=== PATIENT | female | born 1945 | race Hispanic/Latino ===

== ENCOUNTER → 2017-11-28 | Outpatient (CLI) | payer MEDICARE | END | disposition home or self-care (01) | LOC: SHCH 15:13 | PROVIDERS: ATTEND Internal Medicine Cardiovascular Disease | DX: I51.7 Cardiomegaly (principal); I10 Essential (primary) hypertension | CPT/HCPCS: 93306 ==

== ENCOUNTER → 2018-11-07 | Outpatient (CLI) | payer MEDICARE | END | disposition home or self-care (01) | LOC: SHCH 15:19 | PROVIDERS: ATTEND Internal Medicine Cardiovascular Disease | DX: I87.2 Venous insufficiency (chronic) (peripheral) (principal) | CPT/HCPCS: 93970 ==

== ENCOUNTER → 2018-11-13 | Outpatient (CLI) | payer MEDICARE ==
[~2018-11-13] VITALS: Ht 172.7 cm; Wt 127.0 kg
[~2018-11-13] MED LIST: REGADENOSON 0.4 MG/5 ML PF SYG IVP SCH
== END | disposition home or self-care (01) ==
LOC: SHCH 08:46
PROVIDERS: ATTEND Internal Medicine Cardiovascular Disease
DX: I25.9 Chronic ischemic heart disease, unspecified (principal); I20.9 Angina pectoris, unspecified
CPT/HCPCS: 78452; 93017; 96374; A9500 ×2; J2785

== ENCOUNTER 2018-12-24 06:38 | Day surgery (SDC) | payer MEDICARE ==
[2018-12-21 14:06] VITALS: BP 172/54
[2018-12-21 14:06] LABS: BASOPHILS % (AUTO) 0.6 % (0.0-5.0); EOSINOPHILS % (AUTO) 1.6 % (0.0-8.0); HEMATOCRIT 37.4 % (36-48); LYMPHOCYTES % (AUTO) 31.8 % (21.0-51.0); MEAN CORPUSCULAR HEMOGLOBIN 30.7 pg (27.0-33.0); MEAN CORPUSCULAR HGB CONC 33.6 g/dL (32.0-36.0); MEAN CORPUSCULAR VOLUME 91.4 fL (79-99); NUCLEATED RED BLOOD CELLS 0.1 % (0.0-0.19); PLATELET COUNT (AUTO) 308 K/uL (130-400); RED BLOOD CELL COUNT(AUTO) 4.09 MIL/uL (4.00-5.50); RED CELL DISTRIBUTION WIDTH 14.2 % (11.0-15.5); WHITE BLOOD COUNT (AUTO) 9.3 K/uL (4.8-10.8)
[2018-12-21 14:10] LABS: APPEARANCE,URINE Clear (CLEAR); BILIRUBIN,URINE Negative (NEGATIVE); COLOR,URINE Yellow (YELLOW); GLUCOSE, URINE (UA) Negative (NEGATIVE); KETONES,URINE Negative (NEGATIVE); LEUKOCYTE ESTERASE ,URINE Trace (NEGATIVE); NITRATE,URINE Negative (NEGATIVE); OCCULT BLOOD,URINE Negative (NEGATIVE); PH,URINE 6.5 (5.0-8.0); PROTEIN,URINE 300 mg/dL (NEGATIVE)
[2018-12-21 14:17] LABS: BACTERIA,URINE Rare /HPF (None Seen); RBC,URINE 0-1 /HPF (0-1); SQUAMOUS EPITHELIAL CELL,UR Rare /HPF (0-2)
[2018-12-21 14:20] LABS: CREATININE 0.7 mg/dL (0.5-1.5)
[2018-12-21 14:28] LABS: INR 0.94 (0.85-1.15); PARTIAL THROMBOPLASTIN TIME 30.9 SEC (26.3-35.5); PROTHROMBIN TIME 9.9 SEC (9.6-11.6)
--- NOTE | 2018-12-21 14:59 | NUR ---
NOTIFIED WENCESLAO AMBRIZ OF DR. MCDONNELL OF ABNORMAL UA, PER WENCESLAO AMBRIZ OK TO PROCEED NO NEW ORDERS OBTAINED.
--- NOTE | 2018-12-21 15:26 | NUR ---
CHEST X RAY CHEST X RAY RESULT REPORTED TO [facility]. NO FURTHER ORDERS GIVEN. MAY PROCEED WITH PLANNED PROCEDURE.
[~2018-12-24] VITALS: Ht 167.6 cm; Wt 128.4 kg
[2018-12-24] VITALS (11 sets, daily range): BP systolic 128–191; BP diastolic 44–65
[~2018-12-24 06:38] MED LIST changes: +AMLO5TAB9 PO; +ASPI-555 PO; +INSLAN SQ; +LOSA50TA64 PO; +MELO-106 PO; +METF-444 PO; +METO-391 PO; +PIOG30TA70 PO; -REGADENOSON 0.4 MG/5 ML PF SYG IVP SCH; +ROSU40TA20 PO; +SODIUM CHLORIDE 0.9% 1000ML 1,000 ML IV ONE
[2018-12-24] MEDS ORDERED: LIDOCAINE HCL 2% 20ML ONE (09:08)
[2018-12-24] MEDS ORDERED: IOHEXOL-350 50ML VIAL IV ONE (09:08)
[2018-12-24] MEDS ORDERED: NITROGLYCERIN 5 MG/ML 10 ML VIAL IV ONE (09:08)
[2018-12-24] MEDS ORDERED: IOHEXOL 350 MG/ML 100ML INFUS..BTL IV ONE (09:08)
--- NOTE | 2018-12-24 09:45 | NUR ---
TO PRINTING PLATE CLERK PT TAKEN TO PRINTING PLATE CLERK VIA BED BY KRISTIAN MCGEE. VOIDED PRIOR. PT STABLE.
[2018-12-24] MEDS ORDERED: HEART PILL SL (09:47)
[2018-12-24] MEDS ORDERED: FENTANYL CITRATE PF 50 MCG/1 ML 2ML VIAL ONE (10:00)
[2018-12-24] MEDS ORDERED: MIDAZOLAM HCL 1 MG/ML 2ML VIAL ONE (10:00)
[2018-12-24] MEDS ORDERED: SODIUM CHLORIDE 0.9% 1000ML 1,000 ML IV SCH (10:29)
[2018-12-24] MEDS ORDERED: GLUCAGON 1MG KIT 1 MG ML IM PRN (10:30)
[2018-12-24] MEDS ORDERED: DEXTROSE 50%-WATER 50 ML DISP.SYRIN IV PRN (10:30)
[2018-12-24] MEDS ORDERED: NITROGLYCERIN 0.4 MG SL TAB SL PRN (10:30)
[2018-12-24] MEDS ORDERED: HYDRALAZINE HCL 20 MG/ML VIAL IV PRN (10:30)
[2018-12-24] MEDS ORDERED: INSULIN HUMULIN R 100 UNIT/ML 3ML SQ SCH (11:30)
--- NOTE | 2018-12-24 12:20 | NUR ---
DIET PT TOLERATED DIET WELL, PCP ASSISTED PT.
--- NOTE | 2018-12-24 14:45 | NUR ---
ACTIVITY PT ASSISTED TO BATHROOM, AMBULATED WITHOUT ANY PROBLEMS, VOIDED X1 CLEAR YELLOW URINE.
--- NOTE | 2018-12-24 15:10 | NUR ---
DISCHARGE PT DISCHARGED VIA WHEELCHAIR WITH BROTHER. PT STABLE. NO COMPLAINTS MADE. CATH SITE REMAINS SOFT, DRESSING DRY AND INTACT NO OOZING NO HEMATOMA NOTED. DISCHARGE INSTRUCTIONS GIVEN TO BROTHER AND PT. VERBALIZED UNDERSTANDING. ALSO DEMONSTRATED TO PT EARLIER ON HOW TO MONITOR CATH SITE FOR BLEEDING, HEMATOMA, APPLY DIRECT PRESSURE AND CALL 911. VERBALIZED UNDERSTANDING.
== END 2018-12-24 15:10 | disposition home or self-care (01) ==
LOC: DAH 06:38
PROVIDERS: ATTEND Internal Medicine Cardiovascular Disease
DX: I25.118 Atherosclerotic heart disease of native coronary artery with other forms of angina pectoris (principal); E11.9 Type 2 diabetes mellitus without complications; E66.01 Morbid (severe) obesity due to excess calories; I11.0 Hypertensive heart disease with heart failure; I50.32 Chronic diastolic (congestive) heart failure; E78.5 Hyperlipidemia, unspecified; M19.90 Unspecified osteoarthritis, unspecified site; E03.9 Hypothyroidism, unspecified; F15.90 Other stimulant use, unspecified, uncomplicated; Z79.4 Long term (current) use of insulin; Z79.899 Other long term (current) drug therapy; Z68.42 Body mass index [BMI] 45.0-49.9, adult; Z79.01 Long term (current) use of anticoagulants; Z79.84 Long term (current) use of oral hypoglycemic drugs; Z82.49 Family history of ischemic heart disease and other diseases of the circulatory system; Z83.3 Family history of diabetes mellitus
CPT/HCPCS: 36415; 71045; 80048; 81001; 82948 ×2; 85025; 85610; 85730; 93005; 93458; A4606; C1760; C1894 ×2; J1644; J1815; J2250; J3010; J3490 ×2; J7030; Q9965; Q9967 ×2; 99156; 99157

== ENCOUNTER 2020-02-01 21:00 | Inpatient (IN) | payer MEDICARE ==
[~2020-02-01] VITALS: Ht 172.7 cm; Wt 120.5 kg
[~2020-02-01 21:00] MED LIST changes: -ASPI-555 PO; +ASPI-556 PO; +HEART PILL SL; -ROSU40TA20 PO; +ROSU40TA21 PO; -SODIUM CHLORIDE 0.9% 1000ML 1,000 ML IV ONE
[2020-02-01] MEDS ORDERED: ACETAMINOPHEN EXTRA STRENGTH 500 MG TABLET ONE (21:17)
[2020-02-01 21:43] LABS: BASOPHILS % (AUTO) 0.1 % (0.0-5.0); EOSINOPHILS % (AUTO) 0.2 % (0.0-8.0); HEMATOCRIT 39.9 % (36-48); LYMPHOCYTES % (AUTO) 31.2 % (21.0-51.0); MEAN CORPUSCULAR HEMOGLOBIN 29.4 pg (27.0-33.0); MEAN CORPUSCULAR HGB CONC 32.8 g/dL (32.0-36.0); MEAN CORPUSCULAR VOLUME 89.5 fL (79-99); MONOCYTES % (AUTO) 6.1 % (3.0-13.0); NEUTROPHILS % (AUTO) 62.2 % (40.0-77.0); PLATELET COUNT (AUTO) 242 K/uL (130-400); RED BLOOD CELL COUNT(AUTO) 4.46 MIL/uL (4.00-5.50); RED CELL DISTRIBUTION WIDTH 13.5 % (11.0-15.5); WHITE BLOOD COUNT (AUTO) 8.3 K/uL (4.8-10.8)
[2020-02-01 22:00] LABS: CREATININE 1.4 mg/dL (0.5-1.5); POTASSIUM 3.3 mmol/L (3.5-5.1)
[2020-02-01 22:05] LABS: ALBUMIN 3.1 g/dL (3.5-5.0); BILIRUBIN,TOTAL 1.4 mg/dL (0.2-1.0); TOTAL PROTEIN, SERUM 7.9 g/dL (6.0-8.3)
[2020-02-01 22:16] LABS: INR 0.87 (0.85-1.15); PARTIAL THROMBOPLASTIN TIME 32.1 SEC (26.3-35.5); PROTHROMBIN TIME 9.4 SEC (9.6-11.6)
[2020-02-01] MEDS ORDERED: AZITHROMYCIN 500MG+NS 250ML 250 ML IV ONE (22:20)
[2020-02-01] MEDS ORDERED: DEXAMETHASONE SOD PHOSPHATE 10MG/ML 1ML VIAL ONE (22:20)
[2020-02-01] MEDS ORDERED: CEFTRIAXONE SODIUM 1 GM ONE (22:21)
[2020-02-01] MEDS ORDERED: INSULIN HUMULIN R 100 UNIT/ML 3ML ONE (22:22)
[2020-02-01] MEDS ORDERED: POTASSIUM BICARB/CIT AC 25 MEQ TABLET.EFF ONE (22:31)
[2020-02-01] MEDS: SODIUM CHLORIDE 0.9% 1000ML 1,000 ML IV SCH (22:40)
[2020-02-01] MEDS ORDERED: DiphenhydrAMINE HCL 50 MG/ML VIAL IV PRN (22:45)
[2020-02-01] MEDS ORDERED: BENZONATATE 100 MG CAPSULE PO PRN (22:45)
[2020-02-01] MEDS ORDERED: LIDOCAINE HCL 2% VISCOUS 30 ML, MAG HYDROX/AL HYDROX/SIMETH 30 ML, BELLADONNA-PHENOBARB... PO PRN ×3 (22:45)
[2020-02-01] MEDS ORDERED: DIPHENHYDRAMINE HCL 25 MG CAPSULE PO PRN (22:45)
[2020-02-01] MEDS: AZITHROMYCIN 500MG+NS 250ML 250 ML IV SCH (22:45)
[2020-02-01] MEDS ORDERED: ONDANSETRON HCL 4 MG/2 ML VIAL IV PRN (22:45)
[2020-02-01] MEDS ORDERED: MAG HYDROX/AL HYDROX/SIMETH ES 30 ML SUSP UDCUP PO PRN (22:45)
[2020-02-01] MEDS ORDERED: ZOLPIDEM TARTRATE 5 MG TAB PO PRN (22:45)
[2020-02-01] MEDS ORDERED: ERGOCALCIFEROL (VITAMIN D2) 50,000 UNIT CAPSULE PO ONE (22:45)
[2020-02-01] MEDS: CEFTRIAXONE SODIUM 1 GM IVP SCH (22:45)
[2020-02-01] MEDS ORDERED: LACTULOSE 20 GM/30 ML UDCUP PO PRN (22:45)
[2020-02-01] MEDS ORDERED: GUAIFENESIN-DM 200/20 MG 10 ML PO PRN (22:45)
[2020-02-01] MEDS ORDERED: ACETAMINOPHEN 325 MG TAB PO PRN ×2 (22:45)
[2020-02-01] MEDS ORDERED: DEXAMETHASONE 10MG/ML 1ML VIAL 6 MG in SODIUM CHLORIDE 0.9% 50 ML IV SCH (22:45)
[2020-02-01 22:56] LABS: PHOSPHORUS 2.5 mg/dL (2.5-4.9)
[2020-02-01] MEDS ORDERED: IOHEXOL 350 MG/ML 100ML INFUS..BTL IV ONE (23:10)
[2020-02-01 23:47] LABS: HEMOGLOBIN A1C 10.2 % (4.0-6.0)
[2020-02-02 01:07] VITALS: BP 139/53
[2020-02-02 04:30] LABS: BASOPHILS % (AUTO) 0.1 % (0.0-5.0); EOSINOPHILS % (AUTO) 1.3 % (0.0-8.0); HEMATOCRIT 41.8 % (36-48); MEAN CORPUSCULAR HGB CONC 32.3 g/dL (32.0-36.0); MEAN CORPUSCULAR VOLUME 89.7 fL (79-99); NEUTROPHILS % (AUTO) 71.2 % (40.0-77.0); PLATELET COUNT (AUTO) 257 K/uL (130-400); RED BLOOD CELL COUNT(AUTO) 4.66 MIL/uL (4.00-5.50); RED CELL DISTRIBUTION WIDTH 13.5 % (11.0-15.5); WHITE BLOOD COUNT (AUTO) 7.7 K/uL (4.8-10.8)
[2020-02-02 04:42] LABS: ALANINE AMINOTRANSFERASE 14 U/L (12-78); ALBUMIN 2.9 g/dL (3.5-5.0); ASPARTATE AMINOTRANSFERASE 29 U/L (10-37); BILIRUBIN,TOTAL 1.1 mg/dL (0.2-1.0); CARBON DIOXIDE 25 mmol/L (21-32); CHLORIDE 98 mmol/L (101-111); CREATININE 1.2 mg/dL (0.5-1.5); GLOMERULAR FILTR. RATE CALC 47 mL/min (>60); GLUCOSE,RANDOM 326 mg/dL (70-105); LACTATE DEHYDROGENASE 323 U/L (81-234); POTASSIUM 3.9 mmol/L (3.5-5.1); SODIUM SERUM 134 mmol/L (136-145); TOTAL PROTEIN, SERUM 7.8 g/dL (6.0-8.3); UREA NITROGEN, BLOOD 13 mg/dL (7-18)
[2020-02-02] MEDS ORDERED: PHARMACY COMMUNICATION***REMDESIVIR ORDER MISC SCH (04:45)
[2020-02-02] MEDS: SODIUM CHLORIDE 0.9% 1000ML 1,000 ML IV SCH ×4 (04:57→22:32)
[2020-02-02] MEDS: INSULIN LISPRO 100 UNIT/ML 3ML SQ SCH ×4 (05:41→19:59)
[2020-02-02 06:11] VITALS: BP 135/58
--- NOTE | 2020-02-02 06:31 | NUR ---
assessment Pt. is alert and oriented times 4. no complaints of any pain. pt. is on 2 liters nasal canula sating 100%. pt. is up with cane to the bathroom. am blood sugar is 322 i gave her coverage. vitals stable no skin issues. pt. told the ed nurse what meds that she can remember from home. her is in room 409. vitals are stable will continue to monitor
[2020-02-02] MEDS ORDERED: INSULIN LISPRO 100 UNIT/ML 3ML SQ SCH (07:30)
[2020-02-02 08:00] VITALS: BP 118/62
[2020-02-02] MEDS: FAMOTIDINE/PF 20 MG/2 ML VIAL IV SCH ×2 (08:48→19:39)
[2020-02-02] MEDS: ZINC SULFATE 220 CAPSULE PO SCH (08:48)
[2020-02-02] MEDS: ASCORBIC ACID 500 MG TAB PO SCH (08:49)
[2020-02-02] MEDS: CEFTRIAXONE SODIUM 1 GM IVP SCH ×2 (08:49→22:18)
[2020-02-02] MEDS: HEPARIN SODIUM 5000UNIT/ML 1ML VIAL SQ SCH ×3 (08:57→19:39)
[2020-02-02] MEDS: ACETYLCYSTEINE 600 MG CAPSULE PO SCH ×2 (08:58→20:40)
[2020-02-02 11:04] VITALS: BP 135/55
[2020-02-02] MEDS ORDERED: PHARMACY COMMUNICATION**REMDESIVIR ORDER MISC SCH (14:15)
--- NOTE | 2020-02-02 14:51 | NUR ---
cm note met with patient and states resides at home with partner/bf ravi garciabenedicto baker. indep with adls. ,uses cane and walker for ambulation pt drives. no home services. . states dc plan is back to home at time of dc. Addendum: 02/02/20 at 1456 by CADEN GALLARDO CM Amended: Links added.
[2020-02-02 15:56] VITALS: BP 141/65
[2020-02-02] MEDS ORDERED: COMPOUND IV REFRIGERATED 1 EACH IVSOLN MISC PRN (18:15)
[2020-02-02] MEDS ORDERED: REMDESIVIR (EUA) 520 200 MG in SODIUM CHLORIDE 0.9% 250 ML IV SCH (18:15)
[2020-02-02 20:10] VITALS: BP 142/62
[2020-02-02] MEDS: AZITHROMYCIN 500MG+NS 250ML 250 ML IV SCH (22:18)
[2020-02-02] MEDS: DEXAMETHASONE SOD PHOSPHATE 4 MG/ML 1ML VIAL IVP SCH (22:18)
[2020-02-02 23:52] LABS: APPEARANCE,URINE Clear (CLEAR); BILIRUBIN,URINE Negative (NEGATIVE); COLOR,URINE Yellow (YELLOW); GLUCOSE, URINE (UA) 500 mg/dL (NEGATIVE); KETONES,URINE Negative (NEGATIVE); LEUKOCYTE ESTERASE ,URINE Negative (NEGATIVE); NITRATE,URINE Negative (NEGATIVE); OCCULT BLOOD,URINE Small (NEGATIVE); PROTEIN,URINE POS 2+ mg/dL (NEGATIVE); UROBILINOGEN,URINE 0.2 mg/dL (0.2-1.0)
[2020-02-03 00:15] LABS: BACTERIA,URINE Rare /HPF (None Seen); MUCUS,URINE Few LPF (None Seen); RBC,URINE None Seen /HPF (0-1); SQUAMOUS EPITHELIAL CELL,UR Moderate /HPF (0-2); WBC,URINE 0-1 /HPF (0-1)
[2020-02-03 00:23] VITALS: BP 147/59
[2020-02-03] MEDS: PHARMACY COMMUNICATION MISC SCH (05:17)
[2020-02-03] MEDS: INSULIN LISPRO 100 UNIT/ML 3ML SQ SCH ×4 (05:18→20:23)
[2020-02-03 05:26] VITALS: BP 144/50
--- NOTE | 2020-02-03 05:55 | NUR ---
ASSESSMENT PATIENT IS ALERT AND ORIENTED TIMES 4. NO COMPLAINTS OF ANY PAIN. PATIENT IS SATING UPPER 90'S ON 2 LITERS NASAL CANULA. PT. RECEIVED 2 UNITS OF PLASMA LAST NIGHT. AM BLOOD SUGAR IS 336 I GAVE HER COVERAGE. VITALS ARE STABLE WILL CONTINUE TO MONITOR.
[2020-02-03 06:32] LABS: BASOPHILS % (AUTO) 0.1 % (0.0-5.0); HEMATOCRIT 38.6 % (36-48); MEAN CORPUSCULAR HEMOGLOBIN 29.4 pg (27.0-33.0); MEAN CORPUSCULAR HGB CONC 32.6 g/dL (32.0-36.0); MEAN CORPUSCULAR VOLUME 90.2 fL (79-99); MONOCYTES % (AUTO) 1.7 % (3.0-13.0); NEUTROPHILS % (AUTO) 75.5 % (40.0-77.0); PLATELET COUNT (AUTO) 307 K/uL (130-400); RED BLOOD CELL COUNT(AUTO) 4.28 MIL/uL (4.00-5.50); RED CELL DISTRIBUTION WIDTH 13.5 % (11.0-15.5); WHITE BLOOD COUNT (AUTO) 7.2 K/uL (4.8-10.8)
[2020-02-03 07:35] LABS: CARBON DIOXIDE 28 mmol/L (21-32)
[2020-02-03 07:49] LABS: CHLORIDE 104 mmol/L (101-111); POTASSIUM 3.4 mmol/L (3.5-5.1); SODIUM SERUM 141 mmol/L (136-145)
[2020-02-03 08:00] VITALS: BP 124/58
[2020-02-03] MEDS: SODIUM CHLORIDE 0.9% 1000ML 1,000 ML IV SCH ×3 (08:00→20:44)
--- NOTE | 2020-02-03 08:00 | NUR ---
AM SHIFT ASSESSMENT: AAO X 4, SKIN WARM AND DRY TO TOUCH,HEART MONITOR ON, SALINE LOCK RT. FOREARM INTACT. NO C/O VOICED AT THIS TIME.
[2020-02-03 08:14] LABS: ALANINE AMINOTRANSFERASE 15 U/L (12-78); ALBUMIN 2.9 g/dL (3.5-5.0); ASPARTATE AMINOTRANSFERASE 24 U/L (10-37); BILIRUBIN,TOTAL 0.7 mg/dL (0.2-1.0); CREATININE 0.9 mg/dL (0.5-1.5); GLOMERULAR FILTR. RATE CALC 65 mL/min (>60); GLUCOSE,RANDOM 389 mg/dL (70-105); LACTATE DEHYDROGENASE 307 U/L (81-234); TOTAL PROTEIN, SERUM 7.5 g/dL (6.0-8.3); UREA NITROGEN, BLOOD 11 mg/dL (7-18)
[2020-02-03] MEDS: ACETYLCYSTEINE 600 MG CAPSULE PO SCH ×2 (09:00→20:23)
[2020-02-03] MEDS: ZINC SULFATE 220 CAPSULE PO SCH (09:47)
[2020-02-03] MEDS: FAMOTIDINE/PF 20 MG/2 ML VIAL IV SCH ×2 (09:47→20:22)
[2020-02-03] MEDS: ASCORBIC ACID 500 MG TAB PO SCH (09:47)
[2020-02-03] MEDS: CEFTRIAXONE SODIUM 1 GM IVP SCH ×2 (09:47→20:44)
[2020-02-03] MEDS: HEPARIN SODIUM 5000UNIT/ML 1ML VIAL SQ SCH ×3 (09:56→20:22)
[2020-02-03 12:00] VITALS: BP 133/55
--- NOTE | 2020-02-03 14:30 | NUR ---
HAS BEEN UP TO BR TWICE TODAY AND REPORTS 2 BOWEL MOVEMENTS.
[2020-02-03 16:00] VITALS: BP 135/59
[2020-02-03] MEDS: REMDESIVIR (EUA) 520 100 MG in SODIUM CHLORIDE 0.9% 250 ML IV SCH (17:43)
[2020-02-03 19:45] VITALS: BP 152/63
[2020-02-03] MEDS: DEXAMETHASONE SOD PHOSPHATE 4 MG/ML 1ML VIAL IVP SCH (20:44)
[2020-02-04 00:05] VITALS: BP 158/57
[2020-02-04 05:15] VITALS: BP 156/60
--- NOTE | 2020-02-04 05:26 | NUR ---
assessment pt. is alert and oriented times 4 no complaints of any pain. patient is sating upper 90's on 2 liters nasal canula. last night blood sugar was 248 coverage given. vitals are stable will continue to monitor.
[2020-02-04] MEDS: PHARMACY COMMUNICATION MISC SCH (05:37)
[2020-02-04] MEDS: INSULIN LISPRO 100 UNIT/ML 3ML SQ SCH ×4 (05:38→21:16)
[2020-02-04 05:54] LABS: BASOPHILS % (AUTO) 0.3 % (0.0-5.0); HEMATOCRIT 39.8 % (36-48); LYMPHOCYTES % (AUTO) 23.2 % (21.0-51.0); MEAN CORPUSCULAR HEMOGLOBIN 29.8 pg (27.0-33.0); MEAN CORPUSCULAR HGB CONC 32.9 g/dL (32.0-36.0); MEAN CORPUSCULAR VOLUME 90.5 fL (79-99); MONOCYTES % (AUTO) 2.6 % (3.0-13.0); PLATELET COUNT (AUTO) 378 K/uL (130-400); RED CELL DISTRIBUTION WIDTH 13.4 % (11.0-15.5); WHITE BLOOD COUNT (AUTO) 7.6 K/uL (4.8-10.8)
[2020-02-04 06:05] LABS: ALANINE AMINOTRANSFERASE 8 U/L (12-78); ALBUMIN 2.9 g/dL (3.5-5.0); ASPARTATE AMINOTRANSFERASE 21 U/L (10-37); BILIRUBIN,TOTAL 0.7 mg/dL (0.2-1.0); CARBON DIOXIDE 26 mmol/L (21-32); CHLORIDE 98 mmol/L (101-111); CREATININE 0.8 mg/dL (0.5-1.5); GLOMERULAR FILTR. RATE CALC 75 mL/min (>60); GLUCOSE,RANDOM 367 mg/dL (70-105); LACTATE DEHYDROGENASE 298 U/L (81-234); POTASSIUM 3.6 mmol/L (3.5-5.1); SODIUM SERUM 136 mmol/L (136-145); TOTAL PROTEIN, SERUM 7.7 g/dL (6.0-8.3); UREA NITROGEN, BLOOD 16 mg/dL (7-18)
--- NOTE | 2020-02-04 08:00 | NUR ---
ASSESSMENT DONE. NO C/O, BREATHING EASY ON 2 LITERS OF 02 PER NC.
[2020-02-04] MEDS: FAMOTIDINE/PF 20 MG/2 ML VIAL IV SCH ×2 (08:49→20:19)
[2020-02-04] MEDS: ASCORBIC ACID 500 MG TAB PO SCH (08:50)
[2020-02-04] MEDS: ACETYLCYSTEINE 600 MG CAPSULE PO SCH ×2 (08:50→20:20)
[2020-02-04] MEDS: ZINC SULFATE 220 CAPSULE PO SCH (08:50)
[2020-02-04] MEDS: HEPARIN SODIUM 5000UNIT/ML 1ML VIAL SQ SCH ×3 (08:57→20:20)
[2020-02-04] MEDS: SODIUM CHLORIDE 0.9% 1000ML 1,000 ML IV SCH (10:40)
[2020-02-04] MEDS: CEFTRIAXONE SODIUM 1 GM IVP SCH ×2 (10:41→21:26)
[2020-02-04 12:30] VITALS: BP 144/61
[2020-02-04 16:00] VITALS: BP 124/36
[2020-02-04] MEDS: REMDESIVIR (EUA) 520 100 MG in SODIUM CHLORIDE 0.9% 250 ML IV SCH (16:55)
[2020-02-04 20:42] VITALS: BP 154/78
[2020-02-04] MEDS: DEXAMETHASONE SOD PHOSPHATE 4 MG/ML 1ML VIAL IVP SCH (21:26)
[2020-02-04 23:57] VITALS: BP 151/55
[2020-02-05 04:04] VITALS: BP 163/60
[2020-02-05] MEDS: PHARMACY COMMUNICATION MISC SCH (05:16)
[2020-02-05] MEDS: INSULIN LISPRO 100 UNIT/ML 3ML SQ SCH ×4 (05:33→20:44)
[2020-02-05 08:00] VITALS: BP 160/68
[2020-02-05] MEDS: ASCORBIC ACID 500 MG TAB PO SCH (10:26)
[2020-02-05] MEDS: ACETYLCYSTEINE 600 MG CAPSULE PO SCH ×2 (10:26→20:41)
[2020-02-05] MEDS: ZINC SULFATE 220 CAPSULE PO SCH (10:26)
[2020-02-05] MEDS: FAMOTIDINE/PF 20 MG/2 ML VIAL IV SCH ×2 (10:26→20:41)
[2020-02-05] MEDS: HEPARIN SODIUM 5000UNIT/ML 1ML VIAL SQ SCH ×3 (10:39→20:42)
[2020-02-05 11:30] VITALS: BP 149/73
[2020-02-05] MEDS: CEFTRIAXONE SODIUM 1 GM IVP SCH ×2 (12:28→23:22)
[2020-02-05 16:00] VITALS: BP 161/67
[2020-02-05] MEDS: REMDESIVIR (EUA) 520 100 MG in SODIUM CHLORIDE 0.9% 250 ML IV SCH (17:07)
[2020-02-05 20:27] VITALS: BP 157/58
[2020-02-05] MEDS: DEXAMETHASONE SOD PHOSPHATE 4 MG/ML 1ML VIAL IVP SCH (23:22)
[2020-02-05 23:56] VITALS: BP 144/63
[2020-02-06 03:47] LABS: BASOPHILS % (AUTO) 0.2 % (0.0-5.0); EOSINOPHILS % (AUTO) 0.1 % (0.0-8.0); HEMATOCRIT 40.6 % (36-48); LYMPHOCYTES % (AUTO) 24.9 % (21.0-51.0); MEAN CORPUSCULAR HEMOGLOBIN 29.4 pg (27.0-33.0); MEAN CORPUSCULAR HGB CONC 33.3 g/dL (32.0-36.0); MEAN CORPUSCULAR VOLUME 88.5 fL (79-99); MONOCYTES % (AUTO) 5.5 % (3.0-13.0); NEUTROPHILS % (AUTO) 67.7 % (40.0-77.0); PLATELET COUNT (AUTO) 410 K/uL (130-400); RED BLOOD CELL COUNT(AUTO) 4.59 MIL/uL (4.00-5.50); RED CELL DISTRIBUTION WIDTH 13.2 % (11.0-15.5); WHITE BLOOD COUNT (AUTO) 8.5 K/uL (4.8-10.8)
[2020-02-06 03:59] VITALS: BP 157/68
[2020-02-06 04:13] LABS: ALBUMIN 2.8 g/dL (3.5-5.0); BILIRUBIN,TOTAL 0.7 mg/dL (0.2-1.0); POTASSIUM 3.7 mmol/L (3.5-5.1); TOTAL PROTEIN, SERUM 7.2 g/dL (6.0-8.3)
[2020-02-06] MEDS: PHARMACY COMMUNICATION MISC SCH ×2 (05:38→22:59)
[2020-02-06] MEDS ORDERED: POTASSIUM CHLORIDE 10MEQ/100ML 100 ML IV PRN (06:00)
[2020-02-06] MEDS ORDERED: LIDOCAINE HCL-MPF 1% 2ML VIAL IV PRN (06:00)
[2020-02-06] MEDS ORDERED: POTASSIUM CHLORIDE 10% ELIXIR 20 MEQ/15 ML UDCUP PO PRN (06:00)
[2020-02-06] MEDS ORDERED: POTASSIUM CHLORIDE 20 MEQ ERTAB PO PRN (06:00)
[2020-02-06] MEDS: INSULIN HUMULIN R 100 UNIT/ML 3ML SQ SCH ×7 (06:20→21:35)
[2020-02-06 08:00] VITALS: BP 134/57
[2020-02-06] MEDS: FAMOTIDINE/PF 20 MG/2 ML VIAL IV SCH ×2 (10:49→20:10)
[2020-02-06] MEDS: ACETYLCYSTEINE 600 MG CAPSULE PO SCH ×2 (10:51→20:10)
[2020-02-06] MEDS: ASCORBIC ACID 500 MG TAB PO SCH (10:51)
[2020-02-06] MEDS: ZINC SULFATE 220 CAPSULE PO SCH (10:52)
[2020-02-06] MEDS: HEPARIN SODIUM 5000UNIT/ML 1ML VIAL SQ SCH ×3 (10:53→21:33)
[2020-02-06] MEDS: CEFTRIAXONE SODIUM 1 GM IVP SCH ×2 (11:11→20:09)
[2020-02-06 11:30] VITALS: BP 128/58
[2020-02-06 15:30] VITALS: BP 145/69
[2020-02-06] MEDS: REMDESIVIR (EUA) 520 100 MG in SODIUM CHLORIDE 0.9% 250 ML IV SCH (18:23)
[2020-02-06 20:00] VITALS: BP 153/59
--- NOTE | 2020-02-06 20:00 | NUR ---
assessment note patient awake, alert, ox3, no sob, no /co pain at this time, on r/a at this time, oxygen saturation 94 %, tolerating well, extensive discussion regarding plan of care and expected outcome, patient verbalizes understanding via teach back
[2020-02-06] MEDS: DEXAMETHASONE SOD PHOSPHATE 4 MG/ML 1ML VIAL IVP SCH (20:10)
[2020-02-06] MEDS ORDERED: INSULIN GLARGINE 100 UNITS/ML 10 ML VIAL SQ SCH (21:00)
[2020-02-07] VITALS: BP 152/52
[2020-02-07 04:00] VITALS: BP 163/59
[2020-02-07 04:34] LABS: BASOPHILS % (AUTO) 0.2 % (0.0-5.0); HEMATOCRIT 41.1 % (36-48); LYMPHOCYTES % (AUTO) 22.4 % (21.0-51.0); MEAN CORPUSCULAR HEMOGLOBIN 29.4 pg (27.0-33.0); MEAN CORPUSCULAR HGB CONC 33.6 g/dL (32.0-36.0); MEAN CORPUSCULAR VOLUME 87.6 fL (79-99); MONOCYTES % (AUTO) 3.5 % (3.0-13.0); NEUTROPHILS % (AUTO) 70.5 % (40.0-77.0); PLATELET COUNT (AUTO) 449 K/uL (130-400); RED BLOOD CELL COUNT(AUTO) 4.69 MIL/uL (4.00-5.50); RED CELL DISTRIBUTION WIDTH 13.2 % (11.0-15.5)
[2020-02-07 05:02] LABS: ALBUMIN 2.7 g/dL (3.5-5.0); BILIRUBIN,TOTAL 0.7 mg/dL (0.2-1.0); CREATININE 0.9 mg/dL (0.5-1.5); POTASSIUM 3.7 mmol/L (3.5-5.1); TOTAL PROTEIN, SERUM 7.2 g/dL (6.0-8.3)
[2020-02-07] MEDS: INSULIN HUMULIN R 100 UNIT/ML 3ML SQ SCH ×4 (05:58→12:23)
[2020-02-07 08:09] VITALS: BP 147/71
[2020-02-07] MEDS ORDERED: DEXA6TAB PO (08:16)
[2020-02-07] MEDS ORDERED: ASPI-1005 PO (08:16)
[2020-02-07] MEDS: ASCORBIC ACID 500 MG TAB PO SCH (09:00)
[2020-02-07] MEDS: ZINC SULFATE 220 CAPSULE PO SCH (09:00)
[2020-02-07] MEDS: ACETYLCYSTEINE 600 MG CAPSULE PO SCH (09:00)
[2020-02-07] MEDS: HEPARIN SODIUM 5000UNIT/ML 1ML VIAL SQ SCH ×2 (09:00→14:00)
[2020-02-07] MEDS: FAMOTIDINE/PF 20 MG/2 ML VIAL IV SCH (09:00)
--- NOTE | 2020-02-07 09:51 | NUR ---
CM NOTE/[facility] DELIVERED O2 AT HOME CALL MADE TO BROTHER AND MOTHER, BOTH HAVE SAME PHONE # [phone] TO CONFIRM OXYGEN DELIVERY AT HOME, NO ANSWER. CALL PLACED TO PATIENT [phone]. PER PATIENT, CONFIRMED OXYGEN CONCENTRATOR AND PORTABLE TANK DELIVERED AT HOME ON 02/05. INFORMED PATIENT TO HAVE WHO EVER IS PICKING HER UP TO BRING PORTABLE O2 FOR CAR RIDE HOME WITH OXYGEN, PATIENT VERBALIZED UNDERSTANDING.
[2020-02-07] MEDS: CEFTRIAXONE SODIUM 1 GM IVP SCH (11:23)
[2020-02-07 12:25] VITALS: BP 129/59
[2020-02-07 16:39] VITALS: BP 157/59
[2020-02-07 16:42] VITALS: BP 157/59
== END 2020-02-07 18:20 | disposition home or self-care (01) | DRG 177 ==
LOC: EDH 21:00 → EDHIP 22:40 → 4BH 02-02 00:15
PROVIDERS: ADMIT Internal Medicine; ATTEND Internal Medicine
PROC: XW13325 Transfusion of Convalescent Plasma (Nonautologous) into Peripheral Vein, Percutaneous Approach, New Technology Group 5 (ICD-10-PCS; principal; 2020-02-01)
PROC: XW033E5 Introduction of Remdesivir Anti-infective into Peripheral Vein, Percutaneous Approach, New Technology Group 5 (ICD-10-PCS; 2020-02-01)
DX: U07.1 COVID-19 (principal); J12.89 Other viral pneumonia; J96.01 Acute respiratory failure with hypoxia; E87.1 Hypo-osmolality and hyponatremia; N17.9 Acute kidney failure, unspecified; Z68.42 Body mass index [BMI] 45.0-49.9, adult; E87.6 Hypokalemia; E11.65 Type 2 diabetes mellitus with hyperglycemia; E66.01 Morbid (severe) obesity due to excess calories; E78.5 Hyperlipidemia, unspecified; I11.9 Hypertensive heart disease without heart failure; I25.10 Atherosclerotic heart disease of native coronary artery without angina pectoris; Z86.711 Personal history of pulmonary embolism; Z79.82 Long term (current) use of aspirin; Z83.3 Family history of diabetes mellitus; Z82.49 Family history of ischemic heart disease and other diseases of the circulatory system
CPT/HCPCS: 36415; 36430; 71045; 71275; 80053; 81001; 82550; 82728; 82948; 83036; 83605; 83615; 83735; 83880; 84100; 84145; 84484; 85025; 85378; 85610; 85730; 86140; 86850; 86900; 86901; 86927; 87040; 87426; 93005; 94760; G0378; J0456; J0696; J1100; J1644; J1815; J3490; J7030; J7050; Q9967

== ENCOUNTER → 2024-09-26 | Outpatient (CLI) | payer MEDICARE ==
[~2024-09-26] MED LIST changes: +AMLO-257 PO; -AMLO5TAB9 PO; +ASPI-1005 PO; +DEXA6TAB PO; -ROSU40TA21 PO; +ROSU40TA88 PO
== END | disposition home or self-care (01) ==
LOC: SHCH 13:38
PROVIDERS: ATTEND Internal Medicine Cardiovascular Disease
DX: I08.0 Rheumatic disorders of both mitral and aortic valves (principal); I87.2 Venous insufficiency (chronic) (peripheral); I87.1 Compression of vein; I65.23 Occlusion and stenosis of bilateral carotid arteries; I70.203 Unspecified atherosclerosis of native arteries of extremities, bilateral legs; E11.40 Type 2 diabetes mellitus with diabetic neuropathy, unspecified; R01.1 Cardiac murmur, unspecified
CPT/HCPCS: 93306; 93880; 93925; 93970